=== PATIENT | male | born 1935 | race Caucasian/White ===

== ENCOUNTER 2017-04-15 17:39 | Emergency (ER) | payer MEDICARE ==
[~2017-04-15] VITALS: Ht 162.6 cm; Wt 63.5 kg
[2017-04-15 17:39] VITALS: BP_SYST 114
[2017-04-15] MEDS ORDERED: HYT1 GT (17:54)
[2017-04-15] MEDS ORDERED: CARB-61 PO (17:54)
[2017-04-15] MEDS ORDERED: LIP20 PO (17:54)
[2017-04-15] MEDS ORDERED: CLOP75TA2 PO (17:54)
[2017-04-15] MEDS ORDERED: DONE10TA44 PO (17:54)
[2017-04-15 19:05] LABS: BASOPHILS % (AUTO) 0.1 % (0.0-2.0); EOSINOPHILS % (AUTO) 0.2 % (0.0-4.0); HEMATOCRIT 38.2 % (36-54); LYMPHOCYTES # (AUTO) 0.6 K/uL (1.0-5.5); LYMPHOCYTES % (AUTO) 6.1 % (20.5-51.5); MEAN CORPUSCULAR HEMOGLOBIN 32 pg (27-31); MEAN CORPUSCULAR HGB CONC 34 % (32-36); MEAN CORPUSCULAR VOLUME 95 fL (79.0-98.0); MONOCYTES # (AUTO) 0.6 K/uL (0.0-1.0); MONOCYTES % (AUTO) 5.3 % (1.7-9.3); NEUTROPHILS # (AUTO) 9.4 K/uL (1.8-7.7); NEUTROPHILS % (AUTO) 88.3 % (40.0-70.0); PLATELET COUNT (AUTO) 193 K/uL (130-430); RED BLOOD CELL COUNT(AUTO) 4.03 MIL/uL (4.2-6.2); RED CELL DISTRIBUTION WIDTH 12.9 % (9.0-15.0); WHITE BLOOD COUNT (AUTO) 10.6 K/uL (4.8-10.8)
[2017-04-15 19:18] LABS: INR 1.1 (0.80-1.20); PROTHROMBIN TIME 11.6 SECS (9.5-12.5)
[2017-04-15 19:19] LABS: ANION GAP 6 (5-15); CALCIUM 8.4 mg/dL (8.4-11.0); CHLORIDE 107 mmol/L (98-107); CREATININE 1.02 mg/dL (0.55-1.30); GLUCOSE 161 mg/dL (70-99); POTASSIUM 4.7 mmol/L (3.5-5.1); SODIUM SERUM 140 mmol/L (136-145); UREA NITROGEN, BLOOD 20 mg/dL (8-21)
[2017-04-15 19:35] LABS: ALANINE AMINOTRANSFERASE 7 U/L (12-78); ALBUMIN 3.3 g/dL (3.4-4.8); ASPARTATE AMINOTRANSFERASE 17 U/L (10-37); FREE T4 (FREE THYROXINE) 0.7 ng/dL (0.6-1.6); TOTAL BILIRUBIN 0.6 mg/dL (0.0-1.0); TOTAL PROTEIN, SERUM 6.5 g/dL (6.4-8.3)
[2017-04-15 19:38] LABS: ALCOHOL, BLOOD < 3 mg/dL (<10)
[2017-04-15 20:13] LABS: BILIRUBIN,URINE NEGATIVE (NEGATIVE); BLOOD, URINE NEGATIVE (NEGATIVE); CLARITY/URINE SL HAZY (CLEAR); COLOR,URINE YELLOW (YELLOW); GLUCOSE,URINE NEGATIVE (NEGATIVE); KETONES,URINE TRACE (NEGATIVE); LEUKOCYTE ESTERASE ,URINE NEGATIVE (NEGATIVE); NITRITE, URINE NEGATIVE (NEGATIVE); PH,URINE 6.5 (5.0-8.0); PROTEIN URINE TRACE (NEGATIVE)
[2017-04-15] MEDS ORDERED: NACL 0.9% 1,000 ML IV ONE (20:15)
[2017-04-15 20:32] LABS: BACTERIA,URINE FEW /HPF (None Seen); FINE GRANULAR CASTS,URINE 0-10 /LPF (None Seen); HYALINE CASTS, URINE 0-10 /LPF (None Seen); MUCUS,URINE 2+ /LPF (None Seen); RBC,URINE NONE SEEN /HPF (0-3); WBC,URINE 0-3 /HPF (0-3)
[2017-04-15 20:39] LABS: BARBITURATE, URINE NEGATIVE (NEG <=200); BENZODIAZEPINE, URINE POSITIVE (NEG <=150); CANNABINOID, URINE NEGATIVE (NEG <=50); COCAINE, URINE NEGATIVE (NEG <=150); METHAMPHETAMINES SCREEN,URINE NEGATIVE (NEG <=500); OPIATE, URINE NEGATIVE (NEG <=100); PHENCYCLIDINE SCREEN,URINE NEGATIVE (NEG <=25); UR TRICYCLIC ANTIDEPRESSANTS NEGATIVE (NEG <=300); URINE AMPHETAMINE NEGATIVE (NEG <=500); URINE METHADONE NEGATIVE (NEG <=200); URINE OXYCODONE SCREEN NEGATIVE (NEG <=100); URINE PROPOXYPHENE SCREEN NEGATIVE (NEG <=300)
[2017-04-15] MEDS ORDERED: IOHEXOL 100 ML IV ONE (21:09)
[2017-04-16 00:46] VITALS: BP_SYST 169
== END 2017-04-16 00:48 | disposition short-term general hospital (02) ==
LOC: SED 17:39
DX: R40.4 Transient alteration of awareness (principal); G30.9 Alzheimer's disease, unspecified; F02.80 Dementia in other diseases classified elsewhere, unspecified severity, without behavioral disturbance, psychotic disturbance, mood disturbance, and anxiety; Z79.899 Other long term (current) drug therapy
CPT/HCPCS: 36415; 70450; 71010; 74000; 74177; 80053; 80307; 81000; 82140; 83605; 83880; 84439; 84484; 85025; 85610; 87040; 93005; 96360; 99285; G0482; J7030; Q9967

== ENCOUNTER 2022-07-18 14:44 | Inpatient (IN) | payer MEDICARE ==
[2022-07-18] VITALS (9 sets, daily range): BP systolic 101–127
[~2022-07-18] VITALS: Ht 162.6 cm; Wt 52.2 kg
[~2022-07-18 14:44] MED LIST: CARB-61 PO; CLOP75TA2 PO; DONE10TA44 PO; HYT1 GT; LIP20 PO
--- NOTE | 2022-07-18 14:44 | NUR ---
Placed in room 1 . Placed on bioinformatics developer, blood pressure machine and pulse oximeter. To gown for exam. Side rails up. Report given to KENNY AGUIAR AND KENNY MAY.
--- NOTE | 2022-07-18 14:45 | NUR ---
RSI done at bedside by Dr. Vera, 20mg Etomidate followed by 100mg Itz, patient intubated with 7.5 ETT 26 at the [facility]. AC 16, 450, 5, 100%.
--- NOTE | 2022-07-18 14:45 | NUR ---
18G PIV Right Upper Arm, 20G PIV placed to left hand
--- NOTE | 2022-07-18 14:49 | NUR ---
Cxr at bedside
--- NOTE | 2022-07-18 14:50 | NUR ---
Propofol started per order
[2022-07-18] MEDS ORDERED: cefTRIAXone 1 GM IVPB PREMIX 50 ML IV ONE (15:00)
[2022-07-18] MEDS ORDERED: ROCURONIUM BROMIDE 10 MG/ML (ZEMURON) IV ONE (15:00)
[2022-07-18] MEDS ORDERED: PROPOFOL DRIP 100 ML IV ONE ×2 (15:00)
[2022-07-18] MEDS ORDERED: ETOMIDATE 20 MG/ 10 ML VIAL (AMIDATE) IVP ONE (15:00)
[2022-07-18] MEDS ORDERED: ASPIRIN 81 MG TAB.CHEW PO ONE (15:00)
--- NOTE | 2022-07-18 15:08 | NUR ---
EKG done at bedside MD to read
--- NOTE | 2022-07-18 15:28 | NUR ---
16F Xie catheter placed using sterile technique, patient tolerated well.
--- NOTE | 2022-07-18 15:35 | NUR ---
UA collected and sent to Lab
--- NOTE | 2022-07-18 15:51 | NUR ---
RASS -3 - 15 Mcg/Kg/Min Propofol
--- NOTE | 2022-07-18 15:57 | NUR ---
Berniceid and CARO collected
[2022-07-18 16:06] LABS: HEMATOCRIT 35.3 % (36-54); HEMOGLOBIN 11.7 g/dL (14.0-18.0); MEAN CORPUSCULAR HEMOGLOBIN 31 pg (27-31); MEAN CORPUSCULAR HGB CONC 33 % (32-36); MEAN CORPUSCULAR VOLUME 93 fL (79.0-98.0); PLATELET COUNT (AUTO) 226 K/uL (130-430); RED BLOOD CELL COUNT(AUTO) 3.79 MIL/uL (4.2-6.2); WHITE BLOOD COUNT (AUTO) 16.3 K/uL (4.8-10.8)
--- NOTE | 2022-07-18 16:06 | NUR ---
Lizzie Rodarte [phone] ( Daughter) updates given, daughter coming to hospital to see patient and discuss plan of care.
--- NOTE | 2022-07-18 16:07 | NUR ---
Jcarlos Zheng ( Caregiver at Home) Patient had SOB, and fever x 2 days prior to EMS being called. Jcarlos Zheng Tylenol given x2 07/17.2021 HS for fever. Caregiver states patient was on pallative care while at home.
[2022-07-18 16:08] LABS: BILIRUBIN,URINE NEGATIVE (NEGATIVE); BLOOD, URINE NEGATIVE (NEGATIVE); CLARITY/URINE CLEAR (CLEAR); COLOR,URINE YELLOW (YELLOW); GLUCOSE,URINE NEGATIVE (NEGATIVE); KETONES,URINE TRACE (NEGATIVE); LEUKOCYTE ESTERASE ,URINE NEGATIVE (NEGATIVE); NITRITE, URINE NEGATIVE (NEGATIVE); PH,URINE 5.5 (5.0-8.0); PROTEIN URINE NEGATIVE (NEGATIVE); UROBILINOGEN,URINE 0.2 (0.2-1.0)
[2022-07-18 16:12] LABS: ANION GAP 10 (5-15); CALCIUM 9.1 mg/dL (8.4-11.0); CHLORIDE 103 mmol/L (98-107); CREATININE 1.31 mg/dL (0.55-1.30); GLUCOSE 254 mg/dL (70-99); POTASSIUM 3.4 mmol/L (3.5-5.1); UREA NITROGEN, BLOOD 43 mg/dL (8-21)
[2022-07-18 16:23] LABS: ALBUMIN 2.3 g/dL (3.4-4.8); ASPARTATE AMINOTRANSFERASE 25 U/L (10-37); TOTAL BILIRUBIN 0.6 mg/dL (0.0-1.0)
[2022-07-18 16:32] LABS: BAND % (MANUAL) 6 % (0-6); BASOPHILS % (MANUAL) 0 % (0-2); EOSINOPHILS % (MANUAL) 0 % (0-7); LYMPHOCYTES % (MANUAL) 5 % (20-46); MONOCYTES % (MANUAL) 3 % (0-11)
--- NOTE | 2022-07-18 16:34 | NUR ---
Daughter and Son have arrived at hospital. Family has been updated.
--- NOTE | 2022-07-18 16:37 | NUR ---
Lactic Acid 5.4 - Reported to
[2022-07-18 16:42] LABS: ALANINE AMINOTRANSFERASE 0 U/L (12-78)
[2022-07-18] MEDS ORDERED: NACL 0.9% 2,000 ML IV ONE (17:00)
--- NOTE | 2022-07-18 17:38 | NUR ---
Pending admission orders from Dr. Henriquez
[2022-07-18] MEDS ORDERED: NACL 0.9% 1,000 ML IV ONE (17:45)
--- NOTE | 2022-07-18 17:48 | NUR ---
Admit bed requested Patient will be admitted to care of Admitted to ICU unit. Diagnosis Acute Resp Failure Inpatient (Yes or No) Yes Observation (Yes or No) No Orientation concerns or request close to nursing station (Yes or No) No Covid Status NEG On vent or bipap Yes Isolation requirements None Needs a sitter No From Home (Yes or if No enter name of facility) Home Requires Dialysis (Yes or No) No Med Rec Completed (Yes of No) Yes
--- NOTE | 2022-07-18 18:52 | NUR ---
Family remains at bedside
--- NOTE | 2022-07-18 18:59 | NUR ---
Closing Note: Report given to incoming NOC RN, all cares endorsed.
[2022-07-18] MEDS ORDERED: D5LR 1,000 ML IV SCH (19:00)
[2022-07-18] MEDS ORDERED: FUROSEMIDE 20 MG TABLET PO ONE (19:00)
[2022-07-18] MEDS: IPRATROPIUM/ALBUTEROL SULFATE 3 ML AMPUL.NEB (DUONEB) INH SCH ×2 (19:00→23:56)
[2022-07-18] MEDS ORDERED: IPRATROPIUM/ALBUTEROL SULFATE 3 ML AMPUL.NEB (DUONEB) INH PRN (19:00)
[2022-07-18] MEDS ORDERED: ENOXAPARIN SODIUM 40 MG/0.4 ML SYRINGE SUBCUT ONE ×2 (19:15→21:15)
--- NOTE | 2022-07-18 19:22 | NUR ---
INCREASED PROP DRIP TO 20MCG/KG/MIN.
[2022-07-18 19:36] LABS: INR 1.1 (0.80-1.20); PROTHROMBIN TIME 11.4 SECS (9.5-12.5)
--- NOTE | 2022-07-18 19:45 | NUR ---
OPENING NOTES: PATIENT TRANSFERRED, RECEIVED REPORT FROM CESAR. PATIENT IS INTUBATED WITH SETTING OF 16, 450, 5, 50%. LH 20G, 18G PEDRO PROPOFOL AT 20ML, AND NS 100ML. PATIENT WAS ON HOSPICE AND NURSE STATED HE WAS A DNR/DNI. PATIENT HAS G-TUBE THAT IS PATENT. NO SKIN ISSUES. BED IS AT THE LOWEST LEVEL, BRAKES ARE LOCKED, SUCTION IS WORKING, 3 SIDE RAILS UP, AND CALL LIGHT WITHIN REACH. FAMILY AT BEDSIDE.
--- NOTE | 2022-07-18 19:56 | NUR ---
Patient will be admitted to care of ICU MD. Admitted to unit. Will go to room . Belongings list completed. Complete and up to date summary report printed. SBAR report to be given at bedside with opportunity for questions. FAMILY PRESENT IN WAITING ROOM, FULL REPORT GIVEN TO BEDSIDE RN, ALL QUESTIONS ANSWERED AND CARE RELINQUISHED TO KENNY SAWYER.
--- NOTE | 2022-07-18 20:00 | NUR ---
CODE STATUS SPOKE WITH FAMILY REGARDING PTS CODE STATUS. PER PTS DAUGHTER JYOTI AND SON KELLI ZHOU PT WILL BE MODIFIED CODE ACLS DRUGS ONLY, NO COMPRESSIONS. DR. MOSLEY IS AWARE.
--- NOTE | 2022-07-18 20:00 | NUR ---
OUTSIDE PHARMACY CALLED FOR CLARIFICATION OF ORDERS. DR MOSLEY PAGED.
--- NOTE | 2022-07-18 20:05 | NUR ---
DR MOSLEY RETURNED CALL. ORDERS RECEIVED
[2022-07-18] MEDS ORDERED: ATORVASTATIN 20 MG TABLET PO SCH (21:00)
[2022-07-18] MEDS: METHYLPREDNISOLONE SOD SUCC 40 MG/ML VIAL IVP SCH (21:23)
[2022-07-18] MEDS: CARBIDOPA/LEVODOPA 25/100 MG TABLET PO SCH (21:23)
[2022-07-18] MEDS: POTASSIUM CHLORIDE 20 MEQ/PKT PACKET PO SCH (21:23)
[2022-07-18] MEDS: DONEPEZIL HCL 5 MG TABLET (ARICEPT) PO SCH (21:23)
[2022-07-18] MEDS ORDERED: ENOXAPARIN SODIUM 30 MG/0.3 ML SYRINGE SUBCUT ONE (21:30)
[2022-07-19] VITALS (36 sets, daily range): BP systolic 103–133
[2022-07-19] MEDS ORDERED: metroNIDAZOLE 500 mg/NS 200 ML IV ONE (00:16)
[2022-07-19] MEDS: metroNIDAZOLE 500 mg/NS 100 ML IV SCH ×4 (00:19→21:12)
[2022-07-19] MEDS ORDERED: PROPOFOL DRIP 100 ML IV PRN (02:15)
[2022-07-19] MEDS ORDERED: PROPOFOL DRIP 100 ML IV ONE (02:30)
[2022-07-19] MEDS: IPRATROPIUM/ALBUTEROL SULFATE 3 ML AMPUL.NEB (DUONEB) INH SCH ×6 (03:33→23:10)
--- NOTE | 2022-07-19 03:48 | NUR ---
CONSULTATION PAGED/CALLED Reason for Consultation: ELEVATED TROPONIN Person Who was Notified: MIGEL Consulting Physician: DR. BENITEZ Tongue Binder Specialty: CARDIOLOGY Ordering Physician: DR. MOSLEY Reason for Consultation: RESPIRATORY FAILURE Person Who was Notified: ZEINA Consulting Physician: DR. CALL Tongue Binder Specialty: PULMONOLOGY Ordering Physician: DR. MOSLEY
[2022-07-19 05:58] LABS: BASOPHILS % (AUTO) 0.1 % (0.0-2.0); HEMATOCRIT 30.3 % (36-54); HEMOGLOBIN 10.1 g/dL (14.0-18.0); LYMPHOCYTES # (AUTO) 0.9 K/uL (1.0-5.5); LYMPHOCYTES % (AUTO) 7.7 % (20.5-51.5); MEAN CORPUSCULAR HEMOGLOBIN 31 pg (27-31); MEAN CORPUSCULAR HGB CONC 34 % (32-36); MEAN CORPUSCULAR VOLUME 92 fL (79.0-98.0); MONOCYTES # (AUTO) 0.2 K/uL (0.0-1.0); MONOCYTES % (AUTO) 2.1 % (1.7-9.3); NEUTROPHILS # (AUTO) 10.3 K/uL (1.8-7.7); NEUTROPHILS % (AUTO) 90.1 % (40.0-70.0); PLATELET COUNT (AUTO) 191 K/uL (130-430); RED BLOOD CELL COUNT(AUTO) 3.28 MIL/uL (4.2-6.2); RED CELL DISTRIBUTION WIDTH 14.1 % (9.0-15.0); WHITE BLOOD COUNT (AUTO) 11.4 K/uL (4.8-10.8)
--- NOTE | 2022-07-19 07:07 | NUR ---
Report given to oncoming nurse Jeff. All questions answered at bedside.
[2022-07-19 07:21] LABS: ALANINE AMINOTRANSFERASE 0 U/L (12-78); ALBUMIN 1.9 g/dL (3.4-4.8); ANION GAP 5 (5-15); ASPARTATE AMINOTRANSFERASE 19 U/L (10-37); CALCIUM 8.7 mg/dL (8.4-11.0); CHLORIDE 106 mmol/L (98-107); CREATININE 1.04 mg/dL (0.55-1.30); GLUCOSE 278 mg/dL (70-99); POTASSIUM 3.3 mmol/L (3.5-5.1); TOTAL BILIRUBIN 0.5 mg/dL (0.0-1.0); UREA NITROGEN, BLOOD 35 mg/dL (8-21)
[2022-07-19] MEDS ORDERED: LACTOBACILLUS RHAMNOSUS GG 1 CAP CAPSULE PO SCH (09:00)
[2022-07-19] MEDS: LACTOBACILLUS RHAMNOSUS GG 1 CAP CAPSULE PO SCH ×2 (09:25→20:36)
[2022-07-19] MEDS: POTASSIUM CHLORIDE 20 MEQ/PKT PACKET PO SCH (09:25)
[2022-07-19] MEDS: ATORVASTATIN 20 MG TABLET PO SCH (09:25)
[2022-07-19] MEDS: TERAZOSIN HCL 1 MG CAPSULE (HYTRIN) GT SCH (09:25)
[2022-07-19] MEDS: METHYLPREDNISOLONE SOD SUCC 40 MG/ML VIAL IVP SCH ×2 (09:25→20:35)
[2022-07-19] MEDS: CARBIDOPA/LEVODOPA 25/100 MG TABLET PO SCH ×3 (09:25→20:36)
[2022-07-19] MEDS: CLOPIDOGREL BISULFATE 75 MG TABLET PO SCH (09:25)
[2022-07-19] MEDS: ENOXAPARIN SODIUM 30 MG/0.3 ML SYRINGE SUBCUT SCH (09:26)
--- NOTE | 2022-07-19 10:30 | NUR ---
Dietitian Recommendations * Vital AF 1.2 at 35 ml/hr (goal rate), Prosource BID, Free Water Flush: 100 ml Q8h (per physician d/t JHONATHAN/CHF) via GT Provides (w/ current propofol infusion rate): 1376 kcal/day, 93 gm protein/day, and 981 ml free water/day Meets (w/ current propofol infusion rate): 100% of estimated caloric needs and 104% of upper end of estimated protein needs LP, MS, RD Please refer to Nutrition Assessment for details. Addendum: 07/19/22 at [address] Amended: Links added.
--- NOTE | 2022-07-19 11:50 | NUR ---
PULLED BACK ETT 2cm, ETT 24cm AT LIP LINE. PLACED ON CPAP 5, PS 10 PER MD MOSLEY. RSBI 36, SPONTANEOUS RR 21, VT 429ML, SPO2 98%, AND HR 89. PATIENT TOLERATING WELL. RN AWARE.
[2022-07-19] MEDS ORDERED: FUROSEMIDE 20 MG/2 ML VIAL IVP ONE (12:00)
[2022-07-19] MEDS ORDERED: CARVEDILOL 3.125 MG TABLET (COREG) PO ONE (12:00)
--- NOTE | 2022-07-19 12:07 | NUR ---
RECV'D PT FROM GARRETT RN. PT CONT ON VENTILATOR WITH FIO2 AT 30%, PT RR AT 16. PRIOR ABG WNL. PT ON PROPOFOL AT 30MCG/KG/MIN. TITRATED OFF PROPOFOL, RT PLACED PT ON CPAP AT 1150, TOLERATING WELL WITH NO RESP DISTRESS NOTED. PT WITH PEG, PATENT, VERIFIED PLACEMENT. VITAL AF 1.2 RECOMMENDED AND INFUSING NOW. IV ACCESS X 2 PATENT WITHOUT INFILTRATE NOTED. SPOKE WITH JYOTI, DAUGHTER WITH POA. INFORMED JYOTI ON INSERTION OF PICC LINE. EXPLAINED RISKS AND BENEFITS. AT THIS TIME JYOTI DOES NOT CONSENT TO PICC LINE INSERTION. ET TUBE PULLED BACK 2 CM PER CXR RESULTS. LUNG SOUNDS WITH FINE CRACKLES TO RIGHT LOWER LOBE. DR. MOSLEY ROUNDED WITH LASIX ORDERED. ALL NEEDS ATTENDED TO. CALL LIGHT IN REACH. WILL CONT TO MONITOR.
[2022-07-19] MEDS: POTASSIUM CHLORIDE 20 MEQ/PKT PACKET GT SCH ×2 (14:05→20:36)
--- NOTE | 2022-07-19 15:40 | NUR ---
1540 PLACED BACK TO AC 16 PER MD CALL. PATIENT TOLERATED WELL ON CPAP 5, PS 10 FOR 4 HOURS.
[2022-07-19] MEDS: LEVOFLOXACIN 250 MG/D5W 50 ML IV SCH (17:06)
--- NOTE | 2022-07-19 19:05 | NUR ---
OPENING NOTES: RECEIVED BEDSIDE REPORT FROM RAQUEL. PATIENT RESPONDS TO TOUCH AND WILL MAKE AN ATTEMPT TO OPEN EYES. INTUBATE; VENT SETTING ARE AC 16, 450, 30%, 5, ET TUBE WAS PULLED BACK 2 CM TODAY AND O2 IS 98%. G-TUBE WITH VITAL AF AT 35 ML/HR. LH 20 G WITH D5LR RUNNING AT 50 ML/HR, PEDRO 18G SALINE LOCKED. NO SKIN ISSUES. NAVA CATH DRAINAGE TO GRAVITY. CPAP TRAILS WERE DONE TODAY AND PATIENT TOLERATED IT WELL. BED IS AT THE LOWEST LEVEL, BRAKES ARE LOCKED, SUCTION IS WORKING, 3 SIDE RAILS UP, AND CALL LIGHT WITHIN REACH.
[2022-07-19] MEDS: FUROSEMIDE 20 MG/2 ML VIAL IVP SCH (20:36)
[2022-07-19] MEDS: DONEPEZIL HCL 5 MG TABLET (ARICEPT) PO SCH (20:37)
[2022-07-19] MEDS: CARVEDILOL 3.125 MG TABLET (COREG) PO SCH (20:37)
[2022-07-20] VITALS (28 sets, daily range): BP systolic 102–140
[2022-07-20] MEDS: IPRATROPIUM/ALBUTEROL SULFATE 3 ML AMPUL.NEB (DUONEB) INH SCH ×4 (03:56→22:45)
[2022-07-20] MEDS: metroNIDAZOLE 500 mg/NS 100 ML IV SCH ×3 (05:52→21:38)
[2022-07-20 07:04] LABS: BASOPHILS % (AUTO) 0.2 % (0.0-2.0); HEMATOCRIT 29.8 % (36-54); HEMOGLOBIN 10.1 g/dL (14.0-18.0); LYMPHOCYTES # (AUTO) 0.6 K/uL (1.0-5.5); LYMPHOCYTES % (AUTO) 8.3 % (20.5-51.5); MEAN CORPUSCULAR HEMOGLOBIN 31 pg (27-31); MEAN CORPUSCULAR HGB CONC 34 % (32-36); MEAN CORPUSCULAR VOLUME 92 fL (79.0-98.0); MONOCYTES # (AUTO) 0.3 K/uL (0.0-1.0); MONOCYTES % (AUTO) 3.6 % (1.7-9.3); NEUTROPHILS # (AUTO) 6.5 K/uL (1.8-7.7); NEUTROPHILS % (AUTO) 87.9 % (40.0-70.0); PLATELET COUNT (AUTO) 211 K/uL (130-430); RED BLOOD CELL COUNT(AUTO) 3.25 MIL/uL (4.2-6.2); RED CELL DISTRIBUTION WIDTH 13.8 % (9.0-15.0); WHITE BLOOD COUNT (AUTO) 7.4 K/uL (4.8-10.8)
[2022-07-20 07:28] LABS: ALANINE AMINOTRANSFERASE 12 U/L (12-78); ALBUMIN 1.7 g/dL (3.4-4.8); ANION GAP 8 (5-15); ASPARTATE AMINOTRANSFERASE 37 U/L (10-37); CALCIUM 8.2 mg/dL (8.4-11.0); CHLORIDE 108 mmol/L (98-107); CREATININE 0.77 mg/dL (0.55-1.30); GLUCOSE 390 mg/dL (70-99); POTASSIUM 3.4 mmol/L (3.5-5.1); TOTAL BILIRUBIN 0.2 mg/dL (0.0-1.0); UREA NITROGEN, BLOOD 42 mg/dL (8-21)
[2022-07-20] MEDS: CLOPIDOGREL BISULFATE 75 MG TABLET PO SCH (09:00)
[2022-07-20] MEDS: CARBIDOPA/LEVODOPA 25/100 MG TABLET PO SCH ×3 (09:00→20:52)
[2022-07-20] MEDS: ENOXAPARIN SODIUM 30 MG/0.3 ML SYRINGE SUBCUT SCH (09:00)
[2022-07-20] MEDS: LACTOBACILLUS RHAMNOSUS GG 1 CAP CAPSULE PO SCH ×2 (09:00→20:52)
[2022-07-20] MEDS: CARVEDILOL 3.125 MG TABLET (COREG) PO SCH ×2 (09:00→20:52)
--- NOTE | 2022-07-20 09:14 | NUR ---
0736 TRIED PT ON CPAP. PT APNEIC, PLACED BACK TO KENNY BOWER AWARE. Addendum: 07/20/22 at 0915 by Mela Becerra RT Amended: Links added.
[2022-07-20] MEDS: PANTOPRAZOLE SODIUM 40 MG/VIAL (PROTONIX) IVP SCH (10:37)
[2022-07-20] MEDS: TERAZOSIN HCL 1 MG CAPSULE (HYTRIN) GT SCH (10:38)
[2022-07-20] MEDS: FUROSEMIDE 20 MG/2 ML VIAL IVP SCH ×2 (10:39→20:53)
[2022-07-20] MEDS: POTASSIUM CHLORIDE 20 MEQ/PKT PACKET GT SCH ×3 (10:39→20:51)
[2022-07-20] MEDS: METHYLPREDNISOLONE SOD SUCC 40 MG/ML VIAL IVP SCH ×2 (10:40→20:51)
[2022-07-20] MEDS: ATORVASTATIN 20 MG TABLET PO SCH (10:40)
[2022-07-20] MEDS ORDERED: KCL 40 mEq in 100 mL (PREMIX) 100 ML IV ONE (15:00)
--- NOTE | 2022-07-20 16:39 | NUR ---
[address] MOSLEY ORDER, PT EXTUBATED AND PLACED ON 3L NC. SAT 99% RN AWARE. WILL CONT TO MONITOR. Addendum: 07/20/22 at 1640 by Mela Becerra RT Amended: Links added.
[2022-07-20] MEDS: LEVOFLOXACIN 250 MG/D5W 50 ML IV SCH (17:49)
[2022-07-20] MEDS ORDERED: INSULIN REGULAR, HUMAN 100 UNITS/ML, 3 ML VIAL SUBCUT ONE (18:15)
[2022-07-20] MEDS ORDERED: DEXTROSE 50% JECT 50 ML DISP.SYRIN IVP PRN (18:30)
--- NOTE | 2022-07-20 18:44 | NUR ---
DR MOSLEY NOTIFIED OF BLOOD SUGAR IN AM LABS-[id number]. GLUCOSE CHECK AT 1800 WAS 410. REGULAR INSULIN 15 UNITS GIVEN SQ RT DELTOID ORDERED BY DR. MOSLEY. NEW ORDERS IN PROCESS.
--- NOTE | 2022-07-20 19:15 | NUR ---
OPENING NOTES: RECEIVED BEDSIDE REPORT FROM [place]. PATIENT RESPONDS TO TOUCH AND OPENS EYES BUT DOES NOT TRACK. EXTUBATED TODAY AND ON 3 L NC WITH O2 AT 97%. G-TUBE WITH VITAL AF AT 35 ML/HR, PATIENT TO BE SWITCHED TO GLUCERNA 1.5 TOMORROW. BG WAS ELEVATED AND DAY SHIFT MADE MD AWARE AND GOT ORDERS.LH 20 G SALINE LOCKED, PEDRO 18G SALINE LOCKED. RIGHT BUTTOCKS WOUND THAT HAS BEEN DOCUMENTED. NAVA CATH DRAINAGE TO GRAVITY. BED IS AT THE LOWEST LEVEL, BRAKES ARE LOCKED, SUCTION IS WORKING, 3 SIDE RAILS UP, AND CALL LIGHT WITHIN REACH.
--- NOTE | 2022-07-20 20:30 | NUR ---
Family at bedside. All questions answered.
[2022-07-20] MEDS: DONEPEZIL HCL 5 MG TABLET (ARICEPT) PO SCH (20:52)
[2022-07-21] VITALS (14 sets, daily range): BP systolic 111–144
[2022-07-21] MEDS: INSULIN REGULAR, HUMAN 100 UNITS/ML, 3 ML VIAL (humuLIN R) SUBCUT PRN ×2 (00:23→05:53)
--- NOTE | 2022-07-21 03:00 | NUR ---
SHEETS CHANGED, NEW FOAM DRESSING APPLIED, NAVA CATHETER CLEANED WITH CHG WIPES, NEW GOWN, PATIENT TOLERATED WELL.
[2022-07-21] MEDS: IPRATROPIUM/ALBUTEROL SULFATE 3 ML AMPUL.NEB (DUONEB) INH SCH ×6 (03:20→22:08)
[2022-07-21] MEDS: metroNIDAZOLE 500 mg/NS 100 ML IV SCH ×2 (05:45→15:00)
[2022-07-21 07:52] LABS: BASOPHILS % (AUTO) 0.1 % (0.0-2.0); HEMATOCRIT 35.1 % (36-54); HEMOGLOBIN 11.8 g/dL (14.0-18.0); LYMPHOCYTES # (AUTO) 0.8 K/uL (1.0-5.5); LYMPHOCYTES % (AUTO) 9.1 % (20.5-51.5); MEAN CORPUSCULAR HEMOGLOBIN 31 pg (27-31); MEAN CORPUSCULAR HGB CONC 34 % (32-36); MEAN CORPUSCULAR VOLUME 92 fL (79.0-98.0); MONOCYTES # (AUTO) 0.4 K/uL (0.0-1.0); MONOCYTES % (AUTO) 4.9 % (1.7-9.3); NEUTROPHILS # (AUTO) 7.7 K/uL (1.8-7.7); NEUTROPHILS % (AUTO) 85.9 % (40.0-70.0); PLATELET COUNT (AUTO) 250 K/uL (130-430); RED BLOOD CELL COUNT(AUTO) 3.82 MIL/uL (4.2-6.2)
[2022-07-21 08:46] LABS: ALANINE AMINOTRANSFERASE 46 U/L (12-78); ANION GAP 8 (5-15); CALCIUM 8.6 mg/dL (8.4-11.0); CHLORIDE 113 mmol/L (98-107); CREATININE 0.76 mg/dL (0.55-1.30); GLUCOSE 230 mg/dL (70-99); PHOSPHORUS 2.7 mg/dL (2.7-4.5); POTASSIUM 4.7 mmol/L (3.5-5.1); UREA NITROGEN, BLOOD 46 mg/dL (8-21)
[2022-07-21 09:00] LABS: TOTAL BILIRUBIN 0.1 mg/dL (0.0-1.0)
[2022-07-21 09:04] LABS: ASPARTATE AMINOTRANSFERASE 105 U/L (10-37)
[2022-07-21] MEDS: TERAZOSIN HCL 1 MG CAPSULE (HYTRIN) GT SCH (09:24)
[2022-07-21] MEDS: CARVEDILOL 3.125 MG TABLET (COREG) PO SCH (09:25)
[2022-07-21] MEDS: ATORVASTATIN 20 MG TABLET PO SCH (09:25)
[2022-07-21] MEDS: CLOPIDOGREL BISULFATE 75 MG TABLET PO SCH (09:25)
[2022-07-21] MEDS: LACTOBACILLUS RHAMNOSUS GG 1 CAP CAPSULE PO SCH (09:25)
[2022-07-21] MEDS: CARBIDOPA/LEVODOPA 25/100 MG TABLET PO SCH ×2 (09:26→15:01)
[2022-07-21] MEDS: FUROSEMIDE 20 MG/2 ML VIAL IVP SCH (09:26)
[2022-07-21] MEDS: PANTOPRAZOLE SODIUM 40 MG/VIAL (PROTONIX) IVP SCH (09:26)
[2022-07-21] MEDS: POTASSIUM CHLORIDE 20 MEQ/PKT PACKET GT SCH ×2 (09:27→15:00)
[2022-07-21] MEDS: ENOXAPARIN SODIUM 30 MG/0.3 ML SYRINGE SUBCUT SCH (09:27)
[2022-07-21] MEDS: METHYLPREDNISOLONE SOD SUCC 40 MG/ML VIAL IVP SCH (09:27)
--- NOTE | 2022-07-21 12:30 | NUR ---
RT NOTES Called to bedside due to low saturation. Sterile NTS well tolerated, sat improved to mid to high 90s
[2022-07-21] MEDS ORDERED: AMOX250S64 PO (14:49)
[2022-07-21] MEDS ORDERED: GLYC2TAB21 GT (14:54)
[2022-07-21] MEDS ORDERED: FURO-150 GT (14:54)
[2022-07-21] MEDS ORDERED: FEXO180T94 GT (14:54)
[2022-07-21] MEDS ORDERED: SCOP1PAT21 TD (14:54)
[2022-07-21] MEDS ORDERED: VITD2000 PO (14:56)
[2022-07-21] MEDS ORDERED: SCOPOLAMINE HYDROBROMIDE 1 MG PATCH .72 H (TRANSDERM-SCOP) TD SCH (17:00)
--- NOTE | 2022-07-21 17:55 | NUR ---
Received a call from [facility] SEEMA Castellanos at [phone] and full UR done. All questions answered.
[2022-07-21] MEDS: LEVOFLOXACIN 250 MG/D5W 50 ML IV SCH (17:57)
--- NOTE | 2022-07-21 19:08 | NUR ---
Received a call from [facility] they have a bed to transfer the pt. Room 5010 given to me by DALILA Wheeler [phone]. Report to be called to [phone] and pick scheduled for 9pm by [place]. Radiology disc ordered.
--- NOTE | 2022-07-21 19:48 | NUR ---
Daughter Lizzie notified of transfer to [facility].
== END 2022-07-21 23:08 | disposition short-term general hospital (02) | DRG 871 ==
LOC: SED 14:44 → SIC 17:44 → STU 07-21 18:38
PROVIDERS: ADMIT Internal Medicine; ATTEND Internal Medicine
PROC: 5A1945Z Respiratory Ventilation, 24-96 Consecutive Hours (ICD-10-PCS; principal; 2022-07-18)
PROC: 0BH17EZ Insertion of Endotracheal Airway into Trachea, Via Natural or Artificial Opening (ICD-10-PCS; 2022-07-18)
DX: A41.9 Sepsis, unspecified organism (principal); E43 Unspecified severe protein-calorie malnutrition; I50.43 Acute on chronic combined systolic (congestive) and diastolic (congestive) heart failure; J69.0 Pneumonitis due to inhalation of food and vomit; J96.01 Acute respiratory failure with hypoxia; N17.0 Acute kidney failure with tubular necrosis; G93.40 Encephalopathy, unspecified; Z68.1 Body mass index [BMI] 19.9 or less, adult; G20 Parkinson's disease; F02.80 Dementia in other diseases classified elsewhere, unspecified severity, without behavioral disturbance, psychotic disturbance, mood disturbance, and anxiety; E78.5 Hyperlipidemia, unspecified; I11.0 Hypertensive heart disease with heart failure; D63.8 Anemia in other chronic diseases classified elsewhere; N40.0 Benign prostatic hyperplasia without lower urinary tract symptoms; R13.10 Dysphagia, unspecified; E86.0 Dehydration; E87.6 Hypokalemia; Z20.822 Contact with and (suspected) exposure to COVID-19; Z74.01 Bed confinement status; Z93.1 Gastrostomy status; Z86.73 Personal history of transient ischemic attack (TIA), and cerebral infarction without residual deficits
CPT/HCPCS: 36415; 36600; 71045; 80053; 81003; 82803-TC; 82962; 83036; 83605; 83735; 83880; 84100; 84484; 85007; 85025; 85027; 85379; 85610-TC; 85730-TC; 87040; 87081; 93005; 93970; 94002; 94003; 94640; 94760; 96365; 96367; 99291; C9113; J0696; J1030; J1650; J1815; J1940; J1956; J2704; J3480; J3490; J7030; J7050; J7120

== ENCOUNTER 2022-08-03 11:39 | Emergency (ER) | payer MEDICARE ==
[~2022-08-03] VITALS: Ht 170.2 cm; Wt 65.8 kg
[~2022-08-03 11:39] MED LIST changes: +AMOX250S64 PO; +FEXO180T94 GT; +FURO-150 GT; +GLYC2TAB21 GT; +SCOP1PAT21 TD; +VITD2000 PO
[2022-08-03 11:41] VITALS: BP_SYST 125
[2022-08-03] MEDS ORDERED: PIPERACILLIN/TAZO 3.375 GM in D5W 50 ML IV ONE (12:00)
[2022-08-03] MEDS ORDERED: AZITHROMYCIN 500 MG in D5W 250 ML IV ONE (12:00)
[2022-08-03 12:40] LABS: BASOPHILS # (AUTO) 0.1 K/uL (0.0-0.2); BASOPHILS % (AUTO) 1.2 % (0.0-2.0); EOSINOPHILS % (AUTO) 0.3 % (0.0-4.0); HEMATOCRIT 31.6 % (36-54); HEMOGLOBIN 10.5 g/dL (14.0-18.0); LYMPHOCYTES # (AUTO) 1.4 K/uL (1.0-5.5); LYMPHOCYTES % (AUTO) 13.4 % (20.5-51.5); MEAN CORPUSCULAR HEMOGLOBIN 31 pg (27-31); MEAN CORPUSCULAR HGB CONC 33 % (32-36); MEAN CORPUSCULAR VOLUME 94 fL (79.0-98.0); MONOCYTES # (AUTO) 0.5 K/uL (0.0-1.0); MONOCYTES % (AUTO) 4.9 % (1.7-9.3); NEUTROPHILS # (AUTO) 8.6 K/uL (1.8-7.7); NEUTROPHILS % (AUTO) 80.2 % (40.0-70.0); PLATELET COUNT (AUTO) 234 K/uL (130-430); RED BLOOD CELL COUNT(AUTO) 3.38 MIL/uL (4.2-6.2); RED CELL DISTRIBUTION WIDTH 14.7 % (9.0-15.0); WHITE BLOOD COUNT (AUTO) 10.7 K/uL (4.8-10.8)
[2022-08-03 12:45] LABS: ANION GAP 6 (5-15); CALCIUM 8.8 mg/dL (8.4-11.0); CHLORIDE 107 mmol/L (98-107); CREATININE 0.81 mg/dL (0.55-1.30); GLUCOSE 282 mg/dL (70-99); UREA NITROGEN, BLOOD 35 mg/dL (8-21)
[2022-08-03 12:51] LABS: INR 1.1 (0.80-1.20); PROTHROMBIN TIME 10.8 SECS (9.5-12.5)
[2022-08-03 12:53] LABS: ALANINE AMINOTRANSFERASE 44 U/L (12-78); ALBUMIN 2.2 g/dL (3.4-4.8); ASPARTATE AMINOTRANSFERASE 72 U/L (10-37); TOTAL BILIRUBIN 0.2 mg/dL (0.0-1.0)
[2022-08-03 13:16] LABS: BILIRUBIN,URINE NEGATIVE (NEGATIVE); BLOOD, URINE 3+ (NEGATIVE); CLARITY/URINE SL CLOUDY (CLEAR); COLOR,URINE YELLOW (YELLOW); GLUCOSE,URINE NEGATIVE (NEGATIVE); KETONES,URINE NEGATIVE (NEGATIVE); LEUKOCYTE ESTERASE ,URINE 1+ (NEGATIVE); NITRITE, URINE NEGATIVE (NEGATIVE); PH,URINE 5.5 (5.0-8.0); PROTEIN URINE 1+ (NEGATIVE); UROBILINOGEN,URINE 0.2 (0.2-1.0)
[2022-08-03 13:39] LABS: BACTERIA,URINE RARE /HPF (None Seen); RBC,URINE 20-50 /HPF (0-3); YEAST,URINE Moderate /HPF (None Seen)
[2022-08-03] MEDS ORDERED: PIPERACILLIN/TAZOBACTAM 3.375 GM/VIAL (ZOSYN) IV ONE (13:43)
[2022-08-03] MEDS ORDERED: AZITHROMYCIN 500 MG/VIAL (ZITHROMAX) IV ONE (13:44)
[2022-08-03] MEDS ORDERED: NACL 0.9% 2,000 ML IV ONE (14:30)
[2022-08-03 16:08] VITALS: BP_SYST 130
[2022-08-03] MEDS ORDERED: MORPHINE 4 MG INJ. 4 MG/ML VIAL ONE (16:31)
== END 2022-08-03 17:39 | disposition short-term general hospital (02) ==
LOC: SED 11:39
DX: J96.21 Acute and chronic respiratory failure with hypoxia (principal); J18.9 Pneumonia, unspecified organism; I21.4 Non-ST elevation (NSTEMI) myocardial infarction; R65.21 Severe sepsis with septic shock; N17.9 Acute kidney failure, unspecified; G93.40 Encephalopathy, unspecified; D63.8 Anemia in other chronic diseases classified elsewhere; I11.0 Hypertensive heart disease with heart failure; I50.9 Heart failure, unspecified; J44.9 Chronic obstructive pulmonary disease, unspecified; E11.9 Type 2 diabetes mellitus without complications; K21.9 Gastro-esophageal reflux disease without esophagitis; Z79.899 Other long term (current) drug therapy; Z20.822 Contact with and (suspected) exposure to COVID-19
CPT/HCPCS: 99291; 96365; 96361; 96367; 87426; 80053; 81000; 85025; 85610; 85730; 87040; 87086; 84484; 36415; 93005; 71045; 83605; J0456; J2543; J2270; J7030; 99285